=== PATIENT | male | born 1965 | race Caucasian/White ===

== ENCOUNTER 2022-10-13 19:02 | Emergency (ER) | payer BC, SELFPAY ==
[2022-10-13 19:06] VITALS: BP 141/81; PULSE 69; RESP 20; TEMP 37.1; O2SAT 98; BMI 26.2
--- NOTE | 2022-10-13 19:16 | ED_ITS ---
HPI - Extremity Injury (Lower) General Chief Complaint: Extremity Injury, Lower Stated Complaint: Extremity Pain, Lower Time Seen by Provider: 10/13/22 19:12 Source: patient Mode of arrival: walk-in History of Present Illness HPI Narrative: Sol ELENI 4 weeks ago. has been increasing his walking and keeping his leg elevated. Today has swelling of the left knee and left calf. concerned about possible DVT.Mild pain. No fever . Is regaining his strength of his lower legs Related Data Allergies Allergy/AdvReac Type Severity Reaction Status Date / Time amoxicillin [From Augmentin] Allergy Severe Verified 10/13/22 19:06 clavulanic acid Allergy Severe Verified 10/13/22 19:06 [From Augmentin] Review of Systems ROS Status of ROS 10 or more systems reviewed and unremarkable except as noted in history and below Exam Constitutional Vital Signs, click to edit/add: Last Vital Signs Temp 98.8 F 10/13/22 19:06 Pulse 69 10/13/22 19:06 Resp 20 10/13/22 19:06 BP 141/81 10/13/22 19:06 Pulse Ox 98 10/13/22 19:06 O2 Del Method Room Air 10/13/22 19:06 Common normals: no apparent distress, average body habitus, oriented x3, no limitations, healthy appearing and alert Eye Common normals: EOMs intact bilaterally, conjunctivae normal and no scleral icterus Respiratory Common normals: normal respiratory effort, no retractions and no use of accessory muscles GI Common normals: Normal to inspection, nondistended, normoactive bowel sounds present Extremity Other: mild effusion left knee. FROM without discomfort. Mild swelling proximal left leg to include the knee. Neg. Gastroc tenderness. Neuro Common normals: oriented x3, CN's II-XII intact bilaterally, moves all extremities, no focal motor deficits and no sensory deficits noted Psych Appearance: grossly normal Course Vital Signs Vital signs: Vital Signs Temperature 98.8 F 10/13/22 19:06 Pulse Rate 69 10/13/22 19:06 Respiratory Rate 20 10/13/22 19:06 Blood Pressure 141/81 10/13/22 19:06 Pulse Oximetry 98 10/13/22 19:06 Oxygen Delivery Method Room Air 10/13/22 19:06 Temperature 98.8 F 10/13/22 19:06 Pulse Rate 69 10/13/22 19:06 Respiratory Rate 20 10/13/22 19:06 Blood Pressure 141/81 10/13/22 19:06 Pulse Oximetry 98 10/13/22 19:06 Oxygen Delivery Method Room Air 10/13/22 19:06 MDM - Extremity Injury (Lower) MDM Narrative Medical decision making narrative: patient had recent left ELENI. Now has effusion and mild swelling of his upper lower leg with concern for DVT. His INR was elevated but venous doppler neg. Pat ient discharged home and informed this is likely post op fluid and he is to continue to elevate his leg and use NSAIDs. He is to follow up with his doctor for recheck Discharge Plan Discharge Chief Complaint: Extremity Injury, Lower Clinical Impression: Localized swelling of left lower extremity Instructions: Swollen Joint (ED) Stand Alone Forms: Portal Instructions Referrals: RIKA CABRALES [Primary Care Provider] - 1 week
[2022-10-13 19:37] LABS: Basophils Absolute Auto 0.1 10^3/uL (0.0-0.1); Basophils Percent Auto 0.4 % (0.2-2.0); Eosinophils Absolute Auto 0.4 10^3/uL (0.0-0.7); Eosinophils Percent Auto 3.4 % (0.9-7.0); Hematocrit 40.3 % (42.0-54.0); Hemoglobin 13.5 g/dL (14.0-18.0); Immature Granulocytes Abs Auto 0.08 10^3/uL (0.00-0.03); Immature Granulocytes Pct Auto 0.7 % (0.0-0.5); Lymphocytes Absolute Auto 2.9 10^3/uL (1.2-3.8); Lymphocytes Percent Auto 24.5 % (20.5-60.0); Mean Corpuscular HGB Conc 33.5 g/dL (29.9-35.2); Mean Corpuscular Hemoglobin 32.1 pg (25.9-34.0); Mean Platelet Volume 10.3 fL (9.5-13.5); Monocytes Absolute Auto 1.1 10^3/uL (0.3-0.8); Neutrophils Absolute Auto 7.2 10^3/uL (1.4-6.5); Platelet Count 242 10^3/uL (150-450); Red Cell Distribution Width 13.1 % (11.0-15.0); White Blood Count 11.7 10^3/uL (4.0-11.0)
[2022-10-13 19:48] LABS: Anion Gap 13.1; C Reactive Protein 2.5 mg/dL (<=1.0); Calcium 8.5 mg/dL (8.5-10.1); Chloride 104 mmol/L (98-107); Estimated GFR (African America >60 (>=60); Estimated GFR (Non-African Ame >60 (>=60); Glucose 94 mg/dL (74-106); Potassium 4.1 mmol/L (3.5-5.1); Sodium 140 mmol/L (136-145)
[2022-10-13 19:49] LABS: BUN Creatinine Ratio 6.3
--- NOTE | 2022-10-13 20:02 | US_ITS ---
The [address] [address] Patient Name: ISAAC CASTILLO MRN: [id number] date: 1965 Sex: M Assigned Patient Location: ER Current Patient Location: ER Accession/Order Number: [id number] Exam Date: 10/13/2022 20:57 Report Date: 10/13/2022 22:04 At the request of: TOSIN KAY Procedure: US venous doppler LE LT EXAMINATION: US venous doppler LE LT HISTORY: DVT ; left leg swelling COMPARISON: No relevant comparison available. FINDINGS: REGION: Left lower extremity THROMBI: None. COMPRESSIBILITY: Normal compressibility. FLOW: Normal waveform and antegrade flow between 5 and 20 cm/s. OTHER: None. US/US venous doppler LE LT IMPRESSION: 1. No deep vein thrombus within the left lower extremity. Electronically authenticated by: JOHNY SHAFFER Date: 10/13/2022 22:04
== END 2022-10-13 22:31 | disposition home or self-care (01) ==
PROVIDERS: Emergency Provider Internal Medicine; PCP Family Medicine
DX: M79.89 Other specified soft tissue disorders (principal); Z96.642 Presence of left artificial hip joint
CPT/HCPCS: 36415; 80048; 85025; 85378; 86140; 93971; 99284